=== PATIENT | female | born 1965 | race African-American/Black ===

== ENCOUNTER 2020-12-15 03:56 | Emergency (ER) | payer OTHER ==
[2020-12-15] MEDS ORDERED: diphenhydrAMINE 50 MG/ML SDV IVPUSH ONE (04:28)
[2020-12-15] MEDS ORDERED: Ondansetron 4 MG/2 ML SDV IV ONE (04:28)
[2020-12-15] MEDS ORDERED: Lactated Ringers 1,000 ML IV ONE (04:28)
[2020-12-15] MEDS ORDERED: Pantoprazole 40 MG Vial IVPUSH ONE (04:29)
[2020-12-15] MEDS: Sodium Chloride 0.9% 10 ML Syringe FLUSH PRN ×2 (04:53→06:12)
[2020-12-15 05:25] LABS: CHLORIDE,CL 100 mmol/L (98-107); SODIUM,NA 136 mmol/L (136-145)
[2020-12-15 05:28] LABS: PTT,PARTIAL THROMBOPLSTIN TIME 29.9 SEC (24.5-32.8)
[2020-12-15] MEDS ORDERED: Iopamidol 612 MG/ML 100 ML Bottle IVPUSH ONE (05:39)
[2020-12-15] MEDS ORDERED: Sodium Chloride 0.9% 10 ML Syringe FLUSH PRN (05:39)
[2020-12-15] MEDS ORDERED: GI Cocktail Oral Solution 30 ML PO ONE (07:48)
--- NOTE | 2020-12-15 08:45 | EDM.PDOC ---
ED HPI GENERAL MEDICAL PROBLEM - General Chief Complaint: Gastrointestinal Problem Stated Complaint: COFFEE GROUND EMESIS S/P ENDOSCOPY Time Seen by Provider: 12/15/20 04:00 Source of Information: Reports: Patient History Limitations: Reports: No Limitations - History of Present Illness INITIAL COMMENTS - FREE TEXT/NARRATIVE: Patient comes emergency department today from home with complaints of coffee- ground emesis. This patient has had a longstanding history of chronic abdominal pain. For which yesterday she had an upper endoscopy at [facility] in [place]. She was told that she had an ulcer at that time and she had a biopsy taken as well. Her procedure went rather unremarkable she reports. Last night she developed some nausea and vomiting. She vomited 3 times and had coffee-ground emesis which each one of the vomiting. No bright red blood. No chest pain or shortness of breath or difficulty breathing. No syncope palpitations chest pain or pressure. She has some generalized abdominal pain with cramping. She does complain of urinary frequency and small amounts with each urine. No dysuria or hematuria. Has had no fever or chills. No black or tarry stools. She has had elevated liver enzymes which she is following with gastroenterology in [place] for the determination of the underlying elevated liver enzymes. No Covid exposure no Covid symptoms. Treatments [employer]: Reports: Other Medication(s), Other (see below) Other Treatments [employer]: percocet - Related Data Allergies Allergy/AdvReac Type Severity Reaction Status Date / Time hydrocodone Allergy Itching Verified 12/15/20 03:58 Iodinated Contrast Media Allergy Anaphylactic Verified 03/03/15 06:23 [Iodinated Contrast Media - Shock IV Dye] lisinopril Allergy Cough Verified 03/03/15 06:23 Home Meds: Home Meds Acetaminophen [Pain Reliever] 1 tab PO Q6H PRN 12/15/20 [History] Albuterol [Proventil HFA] 2 puff INH Q4H PRN 12/15/20 [History] Docusate Sodium 1 tab PO BID PRN 12/15/20 [History] Fenoprofen Calcium 600 mg PO TID PRN 12/15/20 [History] Fluticasone Propionate [Flonase] 1 spray NASBOTH BID 12/15/20 [History] Fluticasone/Salmeterol [Advair 100-50] 1 puff INH BID 12/15/20 [History] Omeprazole 1 cap PO DAILY 12/15/20 [History] Ondansetron [Ondansetron ODT] 4 mg PO Q6H PRN #8 tab.rapdis 12/15/20 [Rx] Ondansetron [Zofran ODT] 4 mg PO Q4H PRN 12/15/20 [History] Plecanatide [Trulance] 1 tab PO DAILY 12/15/20 [History] Rosuvastatin Calcium 1 tab PO BEDTIME 12/15/20 [History] Sucralfate [Carafate] 1 gm PO QIDACANDBED #120 tablet 12/15/20 [Rx] hydroCHLOROthiazide [Hydrochlorothiazide] 1 tab PO DAILY 12/15/20 [History] polyethylene glycoL 3350 [MiraLAX] 17 gm PO DAILY 12/15/20 [History] tiZANidine [Zanaflex] 4 mg PO DAILY PRN 12/15/20 [History] Past Medical History Cardiovascular History: Reports: High Cholesterol, Hypertension Respiratory History: Reports: Asthma Gastrointestinal History: Reports: Chronic Constipation, Other (See Below) Other Gastrointestinal History: ulcer - Past Surgical History Cardiovascular Surgical History: Reports: None Respiratory Surgical History: Reports: None GI Surgical History: Reports: Colonoscopy, Other (See Below) Other GI Surgeries/Procedures: endoscopy 12/14/20 Social & Family History - Tobacco Use Tobacco Use Status *Q: Never Tobacco User Second Hand Smoke Exposure: No - Caffeine Use Caffeine Use: Reports: None - Recreational Drug Use Recreational Drug Use: No - Living Situation & Occupation Living situation: Reports: , , with Family Occupation: Employed ED ROS GENERAL - Review of Systems Review Of Systems: Comprehensive ROS is negative, except as noted in HPI. ED EXAM, GI/ABD - Physical Exam Exam: See Below Exam Limited By: No Limitations General Appearance: Alert, WD/WN, No Apparent Distress Eyes: Bilateral: EOMI Ears: Normal External Exam Nose: Normal Inspection Throat/Mouth: Normal Inspection Head: Atraumatic, Normocephalic Neck: Normal Inspection, Supple, Non-Tender Respiratory/Chest: No Respiratory Distress, Lungs Clear, Normal Breath Sounds, Chest Non-Tender Cardiovascular: Normal Peripheral Pulses, Regular Rate, Rhythm GI/Abdominal Exam: Normal Bowel Sounds, Soft, Tender (She has generalized tenderness throughout her abdomen.). No: Guarding, Rigid, Rebound (No peritoneal signs.) (Female) Exam: Deferred Rectal (Female) Exam: Deferred Back Exam: Normal Inspection, Full Range of Motion Extremities: Normal Inspection, Normal Range of Motion, Non-Tender, Normal Capillary Refill Neurological: Alert, Oriented, Normal Cognition, Normal Gait, No Motor/Sensory Deficits Psychiatric: Normal Affect, Normal Mood Skin Exam: Warm, Dry, Intact, Normal Color, No Rash Course - Vital Signs Last Recorded V/S: Last Vital Signs Temp 97.8 F 12/15/20 03:57 Pulse 87 12/15/20 05:26 Resp 12 12/15/20 03:57 BP 185/80 H 12/15/20 05:26 Pulse Ox 98 12/15/20 05:26 - Orders/Labs/Meds Orders: Active Orders 24 hr Category Date Time Status Abdomen Pelvis w Cont [CT] Stat Exams 12/15/20 04:29 Taken Chest w Cont [CT] Stat Exams 12/15/20 04:41 Taken Peripheral IV Insertion Adult [OM.PC] Stat Oth 12/15/20 04:27 Ordered Labs: Laboratory Tests 12/15/20 12/15/20 12/15/20 Range/Units 04:45 04:45 04:45 WBC 6.9 (4.0-10.2) K/uL RBC 3.82 (3.77-5.09) M/uL Hgb 11.6 L (11.7-15.5) g/dL Hct 34.4 (34.0-46.0) % MCV 90.1 (84.0-98.0) fL MCH 30.4 (28.2-33.3) pg MCHC 33.7 (31.7-36.0) g/dL RDW 16.9 H (11.2-14.1) % Plt Count 223 (150-350) K/uL Neut % (Auto) 64.2 (45.0-80.0) % Lymph % (Auto) 20.8 (10.0-50.0) % [place] % (Auto) 9.8 (2.0-14.0) % Eos % (Auto) 4.6 (0.0-5.0) % Baso % (Auto) 0.6 (0.0-2.0) % Neut # (Auto) 4.45 (1.40-7.00) K/uL Lymph # (Auto) 1.44 (0.50-3.50) K/uL Houghton # (Auto) 0.68 (0.00-1.00) K/uL Eos # (Auto) 0.32 (0.00-0.50) K/uL Baso # (Auto) 0.04 (0.00-0.20) K/uL PT 12.9 H (9.5-12.0) SEC INR 1.3 APTT 29.9 (24.5-32.8) SEC Sodium 136 (136-145) mmol/L Potassium 4.1 (3.5-5.1) mmol/L Chloride 100 (98-107) mmol/L Carbon Dioxide 28.8 (21.0-32.0) mmol/L BUN 13 (7-18) mg/dL Creatinine 1.06 (0.51-1.17) mg/dL Est Cr Clr Drug Dosing 51.89 mL/min Estimated GFR (MDRD) > 60 mL/min Glucose 117 H (70-99) mg/dL Lactic Acid (0.4-2.0) mmol/L Calcium 8.3 L (8.5-10.1) mg/dL Total Bilirubin 2.9 H (0.2-1.0) mg/dL AST 112 H (15-37) U/L ALT 67 (12-78) U/L Alkaline Phosphatase 119 H (46-116) IU/L C-Reactive Protein 3.0 H (<=0.9) mg/dL Total Protein 7.2 (6.4-8.2) g/dL Albumin 2.9 L (3.4-5.0) g/dL Lipase (73-393) U/L Specimen Type Urine Color Urine Appearance Urine pH (5.0-9.0) Ur Specific Wray (1.005-1.030) Urine Protein (NEGATIVE) mg/dL Urine Glucose (UA) (NEGATIVE) mg/dL Urine Ketones (NEGATIVE) mg/dL Urine Occult Blood (NEGATIVE) Urine Nitrite (NEGATIVE) Urine Bilirubin (NEGATIVE) Urine Urobilinogen (0.2-1.0) E.U./dL Ur Leukocyte Esterase (NEGATIVE) Urine RBC /HPF Urine WBC /HPF Ur Epithelial Cells /LPF Urine Bacteria (NONE TO FEW) /HPF 12/15/20 12/15/20 12/15/20 Range/Units 04:45 04:45 07:55 WBC (4.0-10.2) K/uL RBC (3.77-5.09) M/uL Hgb (11.7-15.5) g/dL Hct (34.0-46.0) % MCV (84.0-98.0) fL MCH (28.2-33.3) pg MCHC (31.7-36.0) g/dL RDW (11.2-14.1) % Plt Count (150-350) K/uL Neut % (Auto) (45.0-80.0) % Lymph % (Auto) (10.0-50.0) % [place] % (Auto) (2.0-14.0) % Eos % (Auto) (0.0-5.0) % Baso % (Auto) (0.0-2.0) % Neut # (Auto) (1.40-7.00) K/uL Lymph # (Auto) (0.50-3.50) K/uL [place]oughton # (Auto) (0.00-1.00) K/uL Eos # (Auto) (0.00-0.50) K/uL Baso # (Auto) (0.00-0.20) K/uL PT (9.5-12.0) SEC INR APTT (24.5-32.8) SEC Sodium (136-145) mmol/L Potassium (3.5-5.1) mmol/L Chloride (98-107) mmol/L Carbon Dioxide (21.0-32.0) mmol/L BUN (7-18) mg/dL Creatinine (0.51-1.17) mg/dL Est Cr Clr Drug Dosing mL/min Estimated GFR (MDRD) mL/min Glucose (70-99) mg/dL Lactic Acid 1.5 (0.4-2.0) mmol/L Calcium (8.5-10.1) mg/dL Total Bilirubin (0.2-1.0) mg/dL AST (15-37) U/L ALT (12-78) U/L Alkaline Phosphatase (46-116) IU/L C-Reactive Protein (<=0.9) mg/dL Total Protein (6.4-8.2) g/dL Albumin (3.4-5.0) g/dL Lipase 138 (73-393) U/L Specimen Type Urinvoid Urine Color Dark yellow Urine Appearance Clear Urine pH 8.0 (5.0-9.0) Ur Specific Wray 1.015 (1.005-1.030) Urine Protein Negative (NEGATIVE) mg/dL Urine Glucose (UA) Negative (NEGATIVE) mg/dL Urine Ketones Negative (NEGATIVE) mg/dL Urine Occult Blood Trace-intact H (NEGATIVE) Urine Nitrite Negative (NEGATIVE) Urine Bilirubin Negative (NEGATIVE) Urine Urobilinogen 1.0 (0.2-1.0) E.U./dL Ur Leukocyte Esterase Negative (NEGATIVE) Urine RBC 0-5 /HPF Urine WBC 0-5 /HPF Ur Epithelial Cells Moderate H /LPF Urine Bacteria Few (NONE TO FEW) /HPF Meds: Medications Discontinued Medications Generic Name Dose Route Start Last Admin Trade Name Freq PRN Reason Stop Dose Admin Al Hydroxide/Mg Hydroxide 30 ml 12/15/20 07:48 12/15/20 08:04 Gi Cocktail Oral Solution 30 Ml PO 12/15/20 07:49 30 ml ONETIME ONE Administration Diphenhydramine HCl 25 mg 12/15/20 04:28 12/15/20 04:54 Diphenhydramine 50 Mg/Ml Sdv IVPUSH 12/15/20 04:29 25 mg ONETIME ONE Administration Lactated Ringer's 1,000 mls @ 1,000 mls/hr 12/15/20 04:28 12/15/20 05:02 Ringers, Lactated IV 12/15/20 05:27 1,000 mls/hr .BOLUS ONE Administration Iopamidol 100 ml 12/15/20 05:39 12/15/20 06:12 Iopamidol 612 Mg/Ml 100 Ml Bottle IVPUSH 12/15/20 05:40 100 ml ONETIME ONE Administration Ondansetron HCl 4 mg 12/15/20 04:28 12/15/20 04:54 Ondansetron 4 Mg/2 Ml Sdv IV 12/15/20 04:29 4 mg ONETIME ONE Administration Pantoprazole Sodium 40 mg 12/15/20 04:29 12/15/20 04:52 Pantoprazole 40 Mg Vial IVPUSH 12/15/20 04:30 40 mg ONETIME ONE Administration Sodium Chloride 10 ml 12/15/20 04:29 12/15/20 06:12 Sodium Chloride 0.9% 10 Ml Syringe FLUSH 10 ml ASDIRECTED PRN Administration Keep Vein Open Sodium Chloride 10 ml 12/15/20 05:39 Sodium Chloride 0.9% 10 Ml Syringe FLUSH 12/15/20 23:00 ONETIME PRN Keep Vein Open - Radiology Interpretation Free Text/Narrative:: CT chest abdomen pelvis per radiology and pulmonary mosaic attenuation. This can be seen in the setting of chronic distal airway disease versus chronic pulmonary embolism. Lungs otherwise clear. Abdomen pelvis small hiatal hernia no evidence of perforation stomach appears unremarkable. Possible early pyelonephritis on the right please correlate with urinalysis - Re-Assessments/Exams Free Text/Narrative Re-Assessment/Exam: 12/15/20 09:17 Patient initially had an IV established was given the Zofran and Benadryl for nausea. 1 L LR wide open. He was also given 40 mg of Protonix IV push. I did review her chart and [facility] for her endoscopy yesterday and it notes that she has quite a bit of esophageal ulceration as well as gastric antrum ulceration. There was no active bleeding at the time of the procedure. She did have 2 cold biopsies completed in the stomach region. Otherwise she was continued on her omeprazole 40 mg a day. And it appears that the procedure was on remarkable. Otherwise. 12/15/20 09:19 Laboratory evaluation with a normal white blood cell count of 6.9, hemoglobin 11.6 and platelets 223. Normal coagulation studies. CMP with a glucose of 117 T bili at 2.9 AST 112 alkaline phosphatase 119 which appears to be baseline for her when reviewing her [facility] chart. C-reactive protein minimally elevated at 3.0. Urinalysis trace blood moderate epithelials negative nitrites negative leukocytes. Did have resolution of her nausea and vomiting with the above therapy. Her CT scan is unremarkable for any free air and has some chronic changes otherwise including a hiatal hernia which was also noted on her endoscopy report. Is had no more nausea or vomiting. Repeat examination of the abdomen is is unchanged. She was given a GI cocktail with improvement of her abdominal pain. She does not show any signs of active hemorrhage as she has not continued to vomit and she only had small amount of coffee-ground emesis. It is most likely that she is either having a small amount of bleeding which is most likely resolved and she has not continued to vomit from the site where she had her biopsy completed in her stomach or some irritation of the large amount of ulceration of the esophagus. We will discharge her home at this time to continue her omeprazole and we will add Carafate as well. No NSAIDs. Contact your endoscopy provider today about the coffee-ground emesis which most likely will be just observed. Discharge directions as below are explained to the patient she was comfortable with this plan and her questions were answered. Departure - Departure Time of Disposition: 08:13 Disposition: Home, Self-Care 01 Clinical Impression: Coffee ground emesis, Elevated liver enzymes, Peptic ulcer Nausea & vomiting Qualifiers: Vomiting type: unspecified Vomiting Intractability: unspecified Qualified Code(s): R11.2 - Nausea with vomiting, unspecified - Discharge Information Prescriptions: Sucralfate [Carafate] 1 gm PO QIDACANDBED #120 tablet Ondansetron [Ondansetron ODT] 4 mg PO Q6H PRN #8 tab.rapdis PRN Reason: Vomiting Instructions: Nausea and Vomiting, Adult, [id number] Referrals: PCP,None [Primary Care Provider] - Forms: ED Department Discharge Additional Instructions: Continue with no Aspirin Ibuprofen or other NSAIDs. Continue with the Omeprazole 40mg daily. Start Carafate 1 gram 4 times a day. 1/2hr before meals and bedtime. Rx sent to your pharmacy. Ondansetron 1 tablet every 6 hrs as needed for nausea and vomiting. Rx sent to your pharmacy. Contact your doctors office today where you had your scope and update them on your symptoms. Return to the ED if new or worsening symptoms. Follow up with PCP in the next 4-6 days if not improving sooner if worse. Sepsis Event Note (ED) - Evaluation Sepsis Screening Result: No Definite Risk - Focused Exam Vital Signs: Vital Signs Temp Pulse Resp BP Pulse Ox 12/15/20 05:26 87 185/80 H 98 12/15/20 04:15 88 171/77 H 12/15/20 03:57 97.8 F 100 12 180/82 H 99 - My Orders Last 24 Hours: My Active Orders 12/15/20 04:27 Peripheral IV Insertion Adult [OM.PC] Stat 04/02/21 04:29 Abdomen Pelvis w Cont [CT] Stat 12/15/20 04:41 Chest w Cont [CT] Stat - Assessment/Plan Last 24 Hours: My Active Orders 12/15/20 04:27 Peripheral IV Insertion Adult [OM.PC] Stat 12/15/20 04:29 Abdomen Pelvis w Cont [CT] Stat 12/15/20 04:41 Chest w Cont [CT] Stat
== END 2020-12-15 08:30 | disposition home or self-care (01) ==
LOC: LL.ED 03:56
DX: K27.9 Peptic ulcer, site unspecified, unspecified as acute or chronic, without hemorrhage or perforation (principal); R11.2 Nausea with vomiting, unspecified; R74.8 Abnormal levels of other serum enzymes; E78.00 Pure hypercholesterolemia, unspecified; I10 Essential (primary) hypertension; J45.909 Unspecified asthma, uncomplicated; Z88.5 Allergy status to narcotic agent; Z91.041 Radiographic dye allergy status; Z88.8 Allergy status to other drugs, medicaments and biological substances; Z79.899 Other long term (current) drug therapy
CPT/HCPCS: 36415; 71260; 74177; 80053; 81001; 83605; 83690; 85025; 85610; 85730; 86140; 96374; 96375; 99284; A9270; C9113; J1200; J2405; J7120; Q9967

== ENCOUNTER 2022-11-02 08:21 | Emergency (ER) | payer OTHER ==
[2022-11-02] MEDS ORDERED: Ondansetron 4 MG/2 ML SDV IVPUSH ONE (08:32)
[2022-11-02] MEDS ORDERED: Lactated Ringers 1,000 ML IV ONE (08:32)
[2022-11-02] MEDS: Sodium Chloride 0.9% 10 ML Syringe FLUSH PRN ×2 (08:50→10:28)
[2022-11-02 09:23] LABS: ANION GAP 10.5 meq/L (7-15)
[2022-11-02] MEDS ORDERED: Magnesium Sulfate/Water 2 GM in Premix Bag 1 BAG IV ONE (09:53)
[2022-11-02] MEDS ORDERED: Sodium Chloride 0.9% 1,000 ML IV ONE (09:53)
[2022-11-02] MEDS ORDERED: Losartan 50 MG Tab PO ONE (10:00)
[2022-11-02] MEDS ORDERED: Hydrochlorothiazide 25 MG Tab PO ONE (10:01)
[2022-11-02] MEDS ORDERED: Pantoprazole 40 MG Vial IVPUSH ONE (10:01)
[2022-11-02 10:02] LABS: CORONAVIRUS COVID-19 NAA NEGATIVE (NEGATIVE); RESPIRATORY SYNCYTIAL VIR NAA NEGATIVE (NEGATIVE)
[2022-11-02] MEDS ORDERED: Ketorolac 30 MG/ML SDV IVPUSH ONE (10:02)
[2022-11-02] MEDS ORDERED: Carvedilol 12.5 MG Tab PO ONE (10:03)
[2022-11-02] MEDS ORDERED: Metoclopramide 10 MG/2 ML SDV IVPUSH ONE (10:03)
[2022-11-02] MEDS ORDERED: Take Home: Ondansetron 4 MG Tab.DIS, 5 Tab Pack PO ONE (12:27)
== END 2022-11-02 13:15 | disposition home or self-care (01) ==
LOC: LL.ED 08:21
DX: E86.0 Dehydration (principal); R11.2 Nausea with vomiting, unspecified; E83.42 Hypomagnesemia; E78.00 Pure hypercholesterolemia, unspecified; I10 Essential (primary) hypertension; E66.9 Obesity, unspecified; Z88.5 Allergy status to narcotic agent; Z88.8 Allergy status to other drugs, medicaments and biological substances; Z79.899 Other long term (current) drug therapy; Z20.822 Contact with and (suspected) exposure to COVID-19; Z68.41 Body mass index [BMI] 40.0-44.9, adult
CPT/HCPCS: 0241U; 36415; 74019; 74176; 80053; 81001; 82150; 83605; 83690; 83735; 85025; 96361; 96365; 96375; 99284; 99284-25; A9270-GY; C9113; J1885; J2405; J2765; J3475; J3490; J7030; J7120; Q0162

== ENCOUNTER 2023-06-09 03:35 | Emergency (ER) | payer OTHER ==
[2023-06-09] MEDS ORDERED: Sodium Chloride 0.9% 10 ML Syringe FLUSH PRN (03:47)
[2023-06-09 03:59] LABS: BASOPHILS ABSOLUTE AUTO 0.02 K/uL (0.00-0.20); BASOPHILS PERCENT AUTO 0.3 % (0.0-2.0); EOSINOPHILS ABSOLUTE AUTO 0.51 K/uL (0.00-0.50); EOSINOPHILS PERCENT AUTO 6.9 % (0.0-5.0); HEMATOCRIT 38.6 % (34.0-46.0); HEMOGLOBIN 12.9 g/dL (11.7-15.5); LYMPHOCYTES ABSOLUTE AUTO 3.78 K/uL (0.50-3.50); LYMPHOCYTES PERCENT AUTO 51.4 % (10.0-50.0); MEAN CORPUSCULAR HEMOGLOBIN 31.5 pg (28.2-33.3); MEAN CORPUSCULAR HGB CONC 33.4 g/dL (31.7-36.0); MEAN CORPUSCULAR VOLUME 94.1 fL (84.0-98.0); MONOCYTES ABSOLUTE AUTO 0.39 K/uL (0.00-1.00); MONOCYTES PERCENT AUTO 5.3 % (2.0-14.0); NEUTROPHILS ABSOLUTE AUTO 2.66 K/uL (1.40-7.00); NEUTROPHILS PERCENT AUTO 36.1 % (45.0-80.0); PLATELET COUNT,PLT 254 K/uL (150-350); RED CELL DISTRIBUTION WIDTH 12.4 % (11.2-14.1); WHITE BLOOD CELL COUNT,WBC 7.4 K/uL (4.0-10.2)
[2023-06-09] MEDS ORDERED: Aspirin 81 MG Tab.Chew PO ONE (03:59)
[2023-06-09] MEDS ORDERED: Aluminum Hydroxide/Magnesium Hydroxide/Simethicone Susp 30 ML Cup PO ONE (04:00)
[2023-06-09] MEDS ORDERED: Lidocaine 2% Viscous Solution 15 ML UD PO ONE (04:01)
[2023-06-09] MEDS ORDERED: LORazepam 0.5 MG Tab PO ONE (04:13)
[2023-06-09] MEDS ORDERED: Sodium Chloride 0.9% 1,000 ML IV ONE ×2 (04:21→05:30)
[2023-06-09 04:23] LABS: ALBUMIN 3.7 g/dL (3.4-5.0); BILIRUBIN TOTAL 0.5 mg/dL (0.2-1.0); CALCIUM 9.1 mg/dL (8.5-10.1); CARBON DIOXIDE,CO2 24.9 mmol/L (21.0-32.0); CREATININE 1.03 mg/dL (0.51-1.17); EST CRCL DRUG DOSING (CG) 50.45 mL/min; MAGNESIUM 1.7 mg/dL (1.8-2.4); POTASSIUM,K 3.3 mmol/L (3.5-5.1); PROTEIN TOTAL,TP 7.5 g/dL (6.4-8.2)
[2023-06-09 04:24] LABS: ANION GAP 13.4 meq/L (7-15)
[2023-06-09] MEDS ORDERED: Potassium Chloride 10 MEQ Tab.ER PO ONE ×2 (04:27→07:00)
[2023-06-09 04:39] LABS: APPEARANCE,URINE TURBID; BILIRUBIN,URINE NEGATIVE (NEGATIVE); COLOR,URINE YELLOW; GLUCOSE,URINE NEGATIVE (NEGATIVE); KETONES,URINE NEGATIVE (NEGATIVE); LEUKOCYTE ESTERASE,URINE TRACE (NEGATIVE); NITRITE,URINE NEGATIVE (NEGATIVE); OCCULT BLOOD,URINE SMALL (NEGATIVE); PH,URINE 8.5 (5.0-9.0); PROTEIN,URINE TRACE mg/dL (NEGATIVE)
[2023-06-09 04:52] LABS: WBC,URINE 0-5 /HPF
[2023-06-09] MEDS ORDERED: Pantoprazole 40 MG Vial IVPUSH ONE (09:04)
[2023-06-09] MEDS ORDERED: Potassium Chloride 10 MEQ Tab.ER ONE (09:19)
== END 2023-06-09 09:45 | disposition home or self-care (01) ==
LOC: LL.ED 03:35
DX: R07.89 Other chest pain (principal); I10 Essential (primary) hypertension; K21.9 Gastro-esophageal reflux disease without esophagitis; Z88.5 Allergy status to narcotic agent; Z91.041 Radiographic dye allergy status; Z88.8 Allergy status to other drugs, medicaments and biological substances; Z79.899 Other long term (current) drug therapy
CPT/HCPCS: 36415; 71046; 74150; 80053; 81001; 83605; 83690; 83735; 83880; 84484; 85025; 85379; 87086; 93005; 93010; 96365; 96375; 99284; 99285-25; A9270-GY; C9113; J3475; J3490; J7030

== ENCOUNTER 2023-11-10 10:50 | Emergency (ER) | payer OTHER ==
[2023-11-10 11:30] LABS: BASOPHILS ABSOLUTE AUTO 0.03 K/uL (0.00-0.20); BASOPHILS PERCENT AUTO 0.8 % (0.0-2.0); EOSINOPHILS ABSOLUTE AUTO 0.24 K/uL (0.00-0.50); EOSINOPHILS PERCENT AUTO 6.1 % (0.0-5.0); HEMATOCRIT 39.9 % (34.0-46.0); HEMOGLOBIN 13.1 g/dL (11.7-15.5); LYMPHOCYTES ABSOLUTE AUTO 1.52 K/uL (0.50-3.50); LYMPHOCYTES PERCENT AUTO 38.6 % (10.0-50.0); MEAN CORPUSCULAR HEMOGLOBIN 30.4 pg (28.2-33.3); MEAN CORPUSCULAR HGB CONC 32.8 g/dL (31.7-36.0); MEAN CORPUSCULAR VOLUME 92.6 fL (84.0-98.0); MONOCYTES ABSOLUTE AUTO 0.24 K/uL (0.00-1.00); MONOCYTES PERCENT AUTO 6.1 % (2.0-14.0); NEUTROPHILS ABSOLUTE AUTO 1.91 K/uL (1.40-7.00); NEUTROPHILS PERCENT AUTO 48.4 % (45.0-80.0); PLATELET COUNT,PLT 254 K/uL (150-350); RED BLOOD CELL COUNT 4.31 M/uL (3.77-5.09); RED CELL DISTRIBUTION WIDTH 12.8 % (11.2-14.1); WHITE BLOOD CELL COUNT,WBC 3.9 K/uL (4.0-10.2)
[2023-11-10 11:52] LABS: APPEARANCE,URINE SLIGHTLY CLOUDY; BILIRUBIN,URINE SMALL (NEGATIVE); COLOR,URINE DARK YELLOW; GLUCOSE,URINE NEGATIVE (NEGATIVE); KETONES,URINE TRACE mg/dL (NEGATIVE); LEUKOCYTE ESTERASE,URINE NEGATIVE (NEGATIVE); NITRITE,URINE NEGATIVE (NEGATIVE); OCCULT BLOOD,URINE LARGE (NEGATIVE); PH,URINE 5.5 (5.0-9.0); PROTEIN,URINE 30 mg/dL (NEGATIVE); UROBILINOGEN,URINE 0.2 E.U./dL (0.2-1.0)
[2023-11-10 11:55] LABS: ALBUMIN 3.7 g/dL (3.4-5.0); ANION GAP 6.7 meq/L (7-15); BILIRUBIN TOTAL 0.6 mg/dL (0.2-1.0); CALCIUM 9.6 mg/dL (8.5-10.1); CARBON DIOXIDE,CO2 30.3 mmol/L (21.0-32.0); CREATININE 1.1 mg/dL (0.51-1.17); EST CRCL DRUG DOSING (CG) 47.24 mL/min; MAGNESIUM 1.6 mg/dL (1.8-2.4); POTASSIUM,K 3.8 mmol/L (3.5-5.1); PROTEIN TOTAL,TP 7.7 g/dL (6.4-8.2)
[2023-11-10] MEDS: Magnesium Sulfate/Water 2 GM in Premix Bag 1 BAG IV ONE (12:06)
[2023-11-10] MEDS: Sodium Chloride 0.9% 1,000 ML IV ONE (12:06)
[2023-11-10 12:11] LABS: BACTERIA,URINE FEW /HPF (NONE TO FEW); EPITHELIAL CELLS,URINE MODERATE /LPF; RBC,URINE 75-100 /HPF; WBC,URINE 0-5 /HPF
[2023-11-10 12:12] LABS: HYALINE CASTS,URINE FEW; MUCUS,URINE MODERATE /LPF (NEGATIVE)
[2023-11-10 12:24] LABS: TSH ULTRASENSITIVE 0.648 mIU/mL (0.358-3.740)
[2023-11-10] MEDS: Ondansetron 4 MG/2 ML SDV IVPUSH ONE (12:45)
[2023-11-10] MEDS: Ketorolac 15 MG/ML SDV IVPUSH ONE (12:46)
[2023-11-10] MEDS: Sodium Chloride 0.9% 10 ML Syringe FLUSH PRN (12:46)
[2023-11-10 12:51] LABS: CORONAVIRUS COVID-19 NAA NEGATIVE (NEGATIVE); INFLUENZA A NAA NEGATIVE (NEGATIVE); INFLUENZA B NAA NEGATIVE (NEGATIVE); RESPIRATORY SYNCYTIAL VIR NAA NEGATIVE (NEGATIVE)
[2023-11-10] MEDS: Lactulose Soln 10 GM/15 ML 30 ML UD Cup PO ONE (14:20)
== END 2023-11-10 14:37 | disposition home or self-care (01) ==
LOC: LL.ED 10:50
DX: K59.09 Other constipation (principal); E83.42 Hypomagnesemia; R31.9 Hematuria, unspecified; I10 Essential (primary) hypertension; E78.00 Pure hypercholesterolemia, unspecified; Z79.899 Other long term (current) drug therapy; Z88.5 Allergy status to narcotic agent; Z91.041 Radiographic dye allergy status
CPT/HCPCS: 0241U; 36415; 74019; 74176; 80053; 81001; 83605; 83690; 83735; 84443; 84484; 85025; 93005; 93010; 96365; 96366; 96375; 99284; 99284-25; A9270-GY; J1885; J2405; J3475; J3490; J7030